=== PATIENT | male | born 1970 | race American Indian/Alaskan Native ===

== ENCOUNTER 2016-10-19 23:34 | Emergency (ER) | payer MEDICAID ==
[2016-10-19 23:42] VITALS: PULSE 80; TEMP 97.7
[2016-10-19] MEDS ORDERED: Albuterol-Ipratrop 3 mg / 0.5 (3 ml) UD IH STA (23:53)
--- NOTE | 2016-10-19 23:56 | C.PDOC ---
History Of Present Illness 46 y/o M c PMHx asthma p/w shortness of breath x 1 day that he states is typical of his asthma. He denies fever, chest pain, leg swelling. He states he ran out of his asthma medications/inhaler. He also reports smoking. Time Seen by Provider: 10/19/16 23:44 Chief Complaint (Nursing): Respiratory Distress History Per: Patient History/Exam Limitations: no limitations Onset/Duration Of Symptoms: Days (1) Current Symptoms Are (Timing): Still Present Severity: Mild Recent travel outside of the [place]: No Additional History Per: Patient Past Medical History Reviewed: Historical Data, Nursing Documentation, Vital Signs Vital Signs: Last Vital Signs Temp 97.7 F 10/19/16 23:39 Pulse 80 10/19/16 23:39 Resp 22 10/19/16 23:39 BP 132/83 10/19/16 23:39 Pulse Ox 91 L 10/20/16 00:38 - Medical History PMH: Asthma, Bronchitis Family History: States: Unknown Family Hx - Social History Hx Tobacco Use: Yes Hx Alcohol Use: Yes Hx Substance Use: No - Immunization History Hx Tetanus Toxoid Vaccination: No Hx Influenza Vaccination: No Hx Pneumococcal Vaccination: No Review Of Systems Except As Marked, All Systems Reviewed And Found Negative. Constitutional: Negative for: Fever, Sweats Cardiovascular: Negative for: Chest Pain, Palpitations Respiratory: Positive for: Shortness of Breath Musculoskeletal: Negative for: Leg Pain, Foot Pain, Other (Jaw pain) Physical Exam - Physical Exam Additional Physical Exam Comments: Constitutional: No acute distress. Head: Normocephalic. Atraumatic. Eyes: PERRL. ENT: Moist mucous membranes. Neck: Supple. Cardiovascular: Regular rate. Radial pulse 2+ bilaterally. Chest: No tenderness. Respiratory:Diffuse wheezing. No rales. No rhonchi. GI: Soft. Nontender. Nondistended. Back: No CVA tenderness. Musculoskeletal: No tenderness or swelling of extremities. Skin: No rash. Neurologic: Alert, no focal deficit. ED Course And Treatment O2 Sat by Pulse Oximetry: 91 (RA) Pulse Ox Interpretation: Normal Medical Decision Making Medical Decision Making: Impression: 46 y/o male c/o shortness of breath x 1 day. Plans: * CXR * Duonebs * Prednisone CXR no acute disease. No infiltrate or consolidation. Duonebs x 3. Prednisone 60mg PO. Counseled on smoking cessation. Patient in no distress. Saturating normally on room air. Disposition - Disposition Referrals: Elder Dudley MD [Medical Doctor] - Disposition: HOME/ ROUTINE Disposition Time: :18 Condition: STABLE Prescriptions: Albuterol HFA [Ventolin HFA 90 mcg/actuation (8 g)] 2 puff IH Q6 #1 inhaler Prednisone [Deltasone] 3 tab PO DAILY #12 tablet Instructions: Asthma (ED), How to Stop Smoking (ED) Forms: [email or web address] (Vietnamese) - Clinical Impression Clinical Impression: Exacerbation of asthma - Scribe Statement The provider has reviewed the documentation as recorded by the Scribe Nicolette sanches All medical record entries made by the Scribe were at my direction and personally dictated by me. I have reviewed the chart and agree that the record accurately reflects my personal performance of the history, physical exam, medical decision making, and the department course for this patient. I have also personally directed, reviewed, and agree with the discharge instructions and disposition.
[2016-10-20 01:29] VITALS: BP 120/80; RESP 14; O2SAT 94
--- NOTE | 2016-10-20 11:21 | RAD ---
HISTORY: dyspnea COMPARISON: 03/17/2016. TECHNIQUE: Chest PA and lateral FINDINGS: LUNGS: The lungs are hyperinflated and there is peribronchial thickening with chronic changes in both lungs. No focal consolidation. PLEURA: No significant pleural effusion identified. No pneumothorax apparent. CARDIOVASCULAR: Normal. OSSEOUS STRUCTURES: No significant abnormalities. VISUALIZED UPPER ABDOMEN: Normal. OTHER FINDINGS: None. IMPRESSION: No active pulmonary disease. COPD.
== END 2016-10-20 01:29 | disposition home or self-care (01) ==
LOC: SUPCPDRO 23:34 → C.ER 23:34
DX: J45.901 Unspecified asthma with (acute) exacerbation (principal)

== ENCOUNTER 2017-01-27 06:15 | Emergency (ER) | payer MEDICAID ==
[2017-01-27 06:16] VITALS: BMI 23.7
[2017-01-27] MEDS ORDERED: Albuterol-Ipratrop 3 mg / 0.5 (3 ml) UD ONE ×2 (06:19→06:39)
[2017-01-27] MEDS ORDERED: Albuterol-Ipratrop 3 mg / 0.5 (3 ml) UD INH STA ×3 (06:22→06:23)
--- NOTE | 2017-01-27 06:24 | C.PDOC ---
History Of Present Illness 46 year old male, whose PMHx includes Asthma, presents to the ED for evaluation of shortness of breath which began tonight. Patient notes he has been wheezing and found no relief after using his ventolin inhaler. Patient denies fever, chills, cough. Chief Complaint (Nursing): Shortness Of Breath History Per: Patient History/Exam Limitations: no limitations Onset/Duration Of Symptoms: Hrs Current Symptoms Are (Timing): Still Present Quality: denies: "Pain" Current Respiratory Medications: See Home Med List, Steroid Inhaler Associated Symptoms: denies: Fever, Chills, Bloody Cough, Productive Cough Additional History Per: Patient Past Medical History Reviewed: Historical Data, Nursing Documentation, Vital Signs Vital Signs: Last Vital Signs Temp 97.8 F 01/27/17 06:18 Pulse 81 01/27/17 06:18 Resp 24 01/27/17 06:25 BP 139/83 01/27/17 06:18 Pulse Ox 100 01/27/17 06:56 - Medical History PMH: Asthma, Bronchitis Denies: Chronic Kidney Disease Surgical History: No Surg Hx Family History: States: Unknown Family Hx - Social History Hx Tobacco Use: Yes Hx Alcohol Use: Yes Hx Substance Use: Yes (pt denies) - Immunization History Hx Tetanus Toxoid Vaccination: No Hx Influenza Vaccination: No Hx Pneumococcal Vaccination: No Review Of Systems Constitutional: Negative for: Fever, Chills Respiratory: Positive for: Shortness of Breath. Negative for: Cough Physical Exam - Physical Exam Appears: Non-toxic, No Acute Distress Skin: Normal Color, Warm, Dry Oral Mucosa: Moist Neck: Supple Chest: Symmetrical, No Deformity, No Tenderness Cardiovascular: Rhythm Regular, No Murmur Respiratory: Rhonchi (bilaterally ), Wheezing (bilaterally ), Other (moderately dyspneic ) Extremity: Normal ROM, Capillary Refill (less than 2 seconds ) Neurological/Psych: Oriented x3, Normal Speech, Normal Cognition ED Course And Treatment - Laboratory Results Result Diagrams: 01/27/17 06:35 01/27/17 06:35 ECG: Interpreted By Me, Viewed By Me ECG Rhythm: Sinus Rhythm ECG Interpretation: No Acute Changes, Abnormal Interpretation Of ECG: NSR, prolonged QT interval, abnormal tracings. Rate From EC O2 Sat by Pulse Oximetry: 100 (on RA) Pulse Ox Interpretation: Normal Progress Note: Bloodwork, CXR, EKG ordered and reviewed. Albuterol INH and Solu -Medrol IVP administered. Disposition Counseled Patient/Family Regarding: Diagnosis - Disposition Disposition Time: 07:00 Condition: STABLE Forms: [facility] (Kyrgyz) - Clinical Impression Clinical Impression: Dyspnea, Acute asthma - Scribe Statement The provider has reviewed the documentation as recorded by the Scribe (Yesy Nicholson) Provider Attestation: All medical record entries made by the Scribe were at my direction and personally dictated by me. I have reviewed the chart and agree that the record accurately reflects my personal performance of the history, physical exam, medical decision making, and the department course for this patient. I have also personally directed, reviewed, and agree with the discharge instructions and disposition. Physician Patient Turnover Patient Signed Over To: Kassie Jamil Handoff Comments: Hx of asthma, presently being given duoneb, pending X-ray abd bld. work.
[2017-01-27 06:38] LABS: EOS # 0.9 K/uL (0.0-0.7); EOS % 18.4 % (0.0-4.0); HEMATOCRIT 38.2 % (35.0-51.0); LYMPH % 19.9 % (20.0-40.0); MEAN CELL VOLUME 89.2 fL (80.0-94.0); MEAN CORPUSCULAR HEMOGLOBIN 29.5 pg (27.0-31.0); MEAN PLATELET VOLUME 8.8 fL (7.2-11.7); MONO # 0.6 K/uL (0.0-0.8); MONO % 13.1 % (0.0-10.0); RED CELL DISTRIBUTION WIDTH 13.3 % (11.5-14.5); WHITE BLOOD COUNT 4.9 K/uL (4.8-10.8)
[2017-01-27 06:47] LABS: ALB/GLOB RATIO 0.8 (1.0-2.1); ALKALINE PHOSPHATASE 68 U/L (38-126); ALT/SGPT 49 U/L (21-72); AST/SGOT 57 U/L (17-59); BILIRUBIN,TOTAL 0.5 mg/dL (0.2-1.3); BLOOD UREA NITROGEN 7 mg/dL (9-20); CALCIUM 8.5 mg/dl (8.6-10.4); CARBON DIOXIDE 33 mmol/L (22-30); CHLORIDE 102 mmol/L (98-107); GFR AFRICAN-AMERICAN > 60; GLUCOSE,RANDOM 84 mg/dL (75-110); SODIUM 138 mmol/L (132-148)
[2017-01-27 07:40] VITALS: RESP 20
[2017-01-27] MEDS ORDERED: Albuterol 0.083% Inhal Sol (2.5 mg/3 mL) UD IH STA ×2 (07:59)
[2017-01-27] MEDS ORDERED: Albuterol 0.083% Inhal Sol (2.5 mg/3 mL) UD ONE ×2 (08:07→08:08)
--- NOTE | 2017-01-27 08:27 | RAD ---
PROCEDURE: CHEST RADIOGRAPH, 1 VIEW HISTORY: SOB COMPARISON: 10/19/2016 FINDINGS: LUNGS: Clear. PLEURA: No pneumothorax or pleural fluid seen. CARDIOVASCULAR: Normal. OSSEOUS STRUCTURES: No significant abnormalities. VISUALIZED UPPER ABDOMEN: Normal. OTHER FINDINGS: None. IMPRESSION: No active disease.
[2017-01-27 10:36] VITALS: BP 141/90; PULSE 78; TEMP 98.4; O2SAT 95
--- NOTE | 2017-01-29 23:10 | CARD ---
APPROVED REPORT EKG Measurement Heart [id number] <Conclusion> Normal sinus rhythm Prolonged QT Abnormal ECG
== END 2017-01-27 10:36 | disposition home or self-care (01) ==
LOC: C.ER 06:15
DX: J45.909 Unspecified asthma, uncomplicated (principal)
CPT/HCPCS: 71010; 80053; 83880; 84484; 85025; 93005; 94640; 96374; 99285; J2930

== ENCOUNTER 2017-09-14 04:54 | Emergency (ER) | payer MEDICAID, OTHER ==
[2017-09-14 04:54] VITALS: BMI 23.7
[2017-09-14 05:15] VITALS: BP 132/75; PULSE 91; RESP 18; TEMP 98.1; O2SAT 95
--- NOTE | 2017-09-14 05:15 | C.PDOC ---
History Of Present Illness 46 y/o male presents to ED requesting detox from substance abuse. Patient states last use was this evening. Denies any physical complaints. Time Seen by Provider: 09/14/17 05:12 History Per: Patient History/Exam Limitations: no limitations Onset/Duration Of Symptoms: Hrs Current Symptoms Are (Timing): Still Present Suicide/Self Injury Attempted (Context): None Associated Symptoms: denies: Suicidal Thoughts, Suicidal Plan Involuntary Hold By: None Recent travel outside of the [place]: No Past Medical History Reviewed: Historical Data, Nursing Documentation, Vital Signs Vital Signs: Last Vital Signs Temp 98.1 F 09/14/17 05:11 Pulse 91 H 09/14/17 05:11 Resp 18 09/14/17 05:11 BP 132/75 09/14/17 05:11 Pulse Ox 95 09/14/17 05:11 - Medical History PMH: Asthma, Bronchitis Surgical History: No Surg Hx Family History: States: Unknown Family Hx - Social History Hx Tobacco Use: Yes Hx Alcohol Use: Yes Hx Substance Use: Yes (pt denies) - Immunization History Hx Tetanus Toxoid Vaccination: No Hx Influenza Vaccination: No Hx Pneumococcal Vaccination: No Review Of Systems Constitutional: Negative for: Fever, Chills Gastrointestinal: Negative for: Nausea, Vomiting, Abdominal Pain, Diarrhea Skin: Negative for: Rash Neurological: Negative for: Weakness, Numbness Psych: Negative for: Suicidal ideation Physical Exam - Physical Exam Appears: Well, Non-toxic, No Acute Distress Skin: Normal Color, Warm, Dry, No Rash Head: Atraumatic, Normacephalic Eye(s): bilateral: Normal Inspection, PERRL, EOMI Nose: Normal, No Discharge, No Deformity Oral Mucosa: Moist Neck: Supple Chest: Symmetrical, No Tenderness Cardiovascular: Rhythm Regular, No Murmur Respiratory: Normal Breath Sounds, No Decreased Breath Sounds, No Rales, No Rhonchi, No Wheezing Gastrointestinal/Abdominal: Soft, No Tenderness, No Distention Extremity: Normal ROM, No Deformity Extremity: Bilateral: Atraumatic, Normal Color And Temperature, Normal ROM Pulses: Left Radial: Normal, Right Radial: Normal Neurological/Psych: Oriented x3, Normal Speech, Other (No focal deficits ) Gait: Steady ED Course And Treatment - Physician Consult Information Time Consulting Physician Contacted: 05:21 Outcome Of Conversation: D/W CRISIS STATES NO DETOX BED AVAIL Disposition Counseled Patient/Family Regarding: Diagnosis, Need For Followup - Disposition Referrals: [facility]CRE[facility]OX [Other] Disposition: HOME/ ROUTINE Disposition Time: 05:14 Condition: GOOD Instructions: Polysubstance Abuse (DC) - Clinical Impression Clinical Impression: Polysubstance abuse - Scribe Statement The provider has reviewed the documentation as recorded by the Scribe Robert Bhagat All medical record entries made by the Gopiibe were at my direction and personally dictated by me. I have reviewed the chart and agree that the record accurately reflects my personal performance of the history, physical exam, medical decision making, and the department course for this patient. I have also personally directed, reviewed, and agree with the discharge instructions and disposition.
== END 2017-09-14 05:25 | disposition home or self-care (01) ==
LOC: C.ER 04:54
DX: F19.10 Other psychoactive substance abuse, uncomplicated (principal)

== ENCOUNTER 2017-10-20 11:13 | Emergency (ER) | payer OTHER ==
[2017-10-20 11:14] VITALS: BMI 23.7
[2017-10-20 11:17] VITALS: BP 177/122; PULSE 70; RESP 20; TEMP 98.3; O2SAT 99
== END 2017-10-20 11:19 | disposition left against medical advice (07) ==
LOC: C.ER 11:13
DX: Z02.89 Encounter for other administrative examinations (principal); R06.02 Shortness of breath